=== PATIENT | female | born 1985 | race Caucasian/White ===

== ENCOUNTER 2017-10-03 09:06 | Emergency (ER) | payer BC, OTHER ==
[~2017-10-03] VITALS: Ht 165.1 cm; Wt 63.5 kg
[2017-10-03 09:14] VITALS: BP_SYST 133
[2017-10-03 09:26] LABS: BILIRUBIN,URINE NEGATIVE (NEGATIVE); BLOOD, URINE 3+ (NEGATIVE); CLARITY/URINE SL HAZY (CLEAR); COLOR,URINE RED (YELLOW); GLUCOSE,URINE NEGATIVE (NEGATIVE); KETONES,URINE NEGATIVE (NEGATIVE); LEUKOCYTE ESTERASE ,URINE NEGATIVE (NEGATIVE); NITRITE, URINE NEGATIVE (NEGATIVE); PROTEIN URINE 1+ (NEGATIVE); UROBILINOGEN,URINE 0.2 (0.2-1.0)
[2017-10-03 09:40] LABS: BACTERIA,URINE FEW /HPF (None Seen); MUCUS,URINE 1+ /LPF (None Seen); RBC,URINE >100 /HPF (0-3)
[2017-10-03] MEDS ORDERED: IOHEXOL 100 ML IV ONE (09:44)
[2017-10-03 09:57] LABS: BASOPHILS # (AUTO) 0.1 K/uL (0.0-0.2); BASOPHILS % (AUTO) 0.9 % (0.0-2.0); EOSINOPHILS % (AUTO) 0.3 % (0.0-4.0); HEMATOCRIT 41.1 % (36-48); HEMOGLOBIN 13.8 g/dL (12.0-16.0); LYMPHOCYTES # (AUTO) 1.8 K/uL (1.0-5.5); LYMPHOCYTES % (AUTO) 25.6 % (20.5-51.5); MEAN CORPUSCULAR HEMOGLOBIN 30 pg (27-31); MEAN CORPUSCULAR HGB CONC 34 % (32-36); MEAN CORPUSCULAR VOLUME 90 fL (79.0-98.0); MONOCYTES # (AUTO) 0.5 K/uL (0.0-1.0); NEUTROPHILS # (AUTO) 4.6 K/uL (1.8-7.7); NEUTROPHILS % (AUTO) 66.2 % (40.0-70.0); PLATELET COUNT (AUTO) 361 K/uL (130-430); RED BLOOD CELL COUNT(AUTO) 4.55 MIL/uL (4.2-6.2); RED CELL DISTRIBUTION WIDTH 12.5 % (9.0-15.0)
[2017-10-03] MEDS: NACL 0.9% 1,000 ML IV ONE (09:58)
[2017-10-03 10:02] LABS: CALCIUM 9.3 mg/dL (8.4-11.0); CREATININE 0.92 mg/dL (0.55-1.30)
[2017-10-03] MEDS: KETOROLAC TROMETHAMINE 30 MG VIAL IVP ONE (10:04)
[2017-10-03 10:06] LABS: ALBUMIN 3.9 g/dL (3.4-4.8); TOTAL BILIRUBIN 0.3 mg/dL (0.0-1.0)
[2017-10-03 11:32] VITALS: BP_SYST 125
== END 2017-10-03 11:32 | disposition home or self-care (01) ==
LOC: SED 09:06
DX: R10.31 Right lower quadrant pain (principal); R03.0 Elevated blood-pressure reading, without diagnosis of hypertension; Z88.0 Allergy status to penicillin
CPT/HCPCS: 36415; 74177; 80053; 81000; 81025; 83690; 85025; 96361; 96374; 99285; J1885; J7030; Q9967